=== PATIENT | male | born 1965 | race Caucasian/White ===

== ENCOUNTER 2018-08-09 07:00 | Outpatient (CLI) | payer BC, SELFPAY ==
[2018-08-09 08:22] LABS: ALT 64 U/L (12-78); AST 29 U/L (15-37); Albumin 4.2 g/dL (3.4-5.0); Alkaline Phosphatase 63 U/L (46-116); Anion Gap 13.9 mmol/L (3-11); BUN 11 mg/dL (7-18); Bilirubin, Total 0.6 mg/dL (0.2-1.0); CO2 25.1 mmol/L (21.0-32.0); CREATININE 1.23 mg/dL (0.70-1.30); Chloride 100 mmol/L (98-107); Cholesterol 167 mg/dL (50-200); Glucose 115 mg/dL (70-100); HDL Cholesterol 32 mg/dL (40-60); LDL CHOLESTEROL 108 mg/dL (<100); Potassium 4.1 mmol/L (3.5-5.1); Sodium 139 mmol/L (136-145); Total Protein 7.4 g/dL (6.4-8.2); Triglyceride 167 mg/dL (30-150)
== END 2018-08-09 07:20 ==
PROVIDERS: PCP Family Medicine; Visit Provider Family Medicine
DX: E78.5 Hyperlipidemia, unspecified (principal)
CPT/HCPCS: 36415; 80053; 80061; 83721

== ENCOUNTER 2020-11-14 02:54 | Outpatient (CLI) | payer BC, SELFPAY ==
[2020-11-14 09:12] LABS: ALT 39 U/L (16-63); AST 27 U/L (15-37); Albumin 4.3 g/dL (3.4-5.0); Alkaline Phosphatase 54 U/L (46-116); Anion Gap 11.6 mmol/L (3-11); BUN 23 mg/dL (7-18); Bilirubin, Total 0.4 mg/dL (0.2-1.0); CO2 26.4 mmol/L (21.0-32.0); CREATININE 1.3 mg/dL (0.70-1.30); Calcium 9.4 mg/dL (8.5-10.1); Calculated LDL 130 mg/dL (<100); Chloride 100 mmol/L (98-107); Cholesterol 220 mg/dL (<200); Glucose 106 mg/dL (74-106); HDL Cholesterol 41 mg/dL (40-60); Potassium 4.2 mmol/L (3.5-5.1); Sodium 138 mmol/L (136-145); Total Protein 7.5 g/dL (6.4-8.2); Triglyceride 249 mg/dL (<150)
== END 2020-11-14 02:55 | disposition home or self-care (01) ==
PROVIDERS: PCP Family Medicine; Visit Provider Family Medicine
DX: I10 Essential (primary) hypertension (principal); E78.5 Hyperlipidemia, unspecified
CPT/HCPCS: 36415; 80053; 80061

== ENCOUNTER 2021-11-04 03:57 | Outpatient (CLI) | payer BC, SELFPAY ==
[2021-11-04 12:26] LABS: ALT 31 U/L (16-63); AST 27 U/L (15-37); Albumin 4.3 g/dL (3.4-5.0); Alkaline Phosphatase 50 U/L (46-116); Anion Gap 11.4 mmol/L (3-11); BUN 21 mg/dL (7-18); Bilirubin, Total 0.8 mg/dL (0.2-1.0); CO2 23.6 mmol/L (21.0-32.0); CREATININE 1.2 mg/dL (0.70-1.30); Calcium 8.6 mg/dL (8.5-10.1); Chloride 97 mmol/L (98-107); Glucose 84 mg/dL (74-106); Potassium 3.5 mmol/L (3.5-5.1); Sodium 132 mmol/L (136-145); Total Protein 7.4 g/dL (6.4-8.2); Uric Acid 9.3 mg/dL (3.5-7.2)
[2021-11-04 14:16] LABS: Calculated LDL 135 mg/dL (<100); Cholesterol 214 mg/dL (<200); HDL Cholesterol 44 mg/dL (40-60); Triglyceride 179 mg/dL (<150)
== END 2021-11-04 03:58 | disposition home or self-care (01) ==
LOC: LBO 03:57
PROVIDERS: PCP Family Medicine; Visit Provider Family Medicine
DX: E78.5 Hyperlipidemia, unspecified (principal); M10.9 Gout, unspecified
CPT/HCPCS: 36415; 80053; 80061; 84550

== ENCOUNTER 2023-02-01 10:22 | Emergency (ER) | payer BC, SELFPAY ==
[2023-02-01 10:25] VITALS: BP 104/70; PULSE 89; RESP 16; TEMP 36.7; O2SAT 98
--- NOTE | 2023-02-01 10:30 | DI.US_ITS ---
Exam(s) US SOFT TISSUE EXTREMITY EXAM: US SOFT TISSUE EXTREMITY CLINICAL HISTORY: eval foreign body left hand near base of thumb. TECHNIQUE: Ultrasound was performed using standard protocol. COMPARISON: None FINDINGS: Dedicated ultrasound of the area of clinical concern on the dorso lateral aspect of the hand pharynx. There concern there is an abnormal hypoechoic vascular area which is possibly a tract and overlies a deeper small area of fluid. Findings are probably consistent with probable abscess. There is no obv ious visible foreign body. IMPRESSION: Findings consistent with infectious process this level/developing abscess. DATA REPOSITORY:
--- NOTE | 2023-02-01 10:48 | W.ED.GENAD ---
Discharge Plan Disposition Patient Disposition: Home Discharge Details Chief Complaint: RashLesion Clinical Impression: Foreign body (FB) in soft tissue Primary Care Provider: Kunal Schneider ED Provider: Susie Westbrook Home Meds and New Rx's Prescriptions: No Action Dupixent Syringe 300 mg/2 mL syringe 300 mg SC Q2W Qty: 4 0RF ProAir RespiClick 90 mcg/actuation aerosol powdr breath activated 2 inh inhalation Q6H PRN (Reason: shortness of breath or wheezing) Qty: 1 6RF amlodipine 10 mg tablet 10 mg PO DAILY Qty: 90 3RF Rx Instructions: to lower BP under 140/85 oxycodone-acetaminophen 5-325 mg tablet 1 tab PO BID MDD 10 mg oxycodone PRN (Reason: pain) Qty: 56 0RF Patient Comments: duplicate order 02/01/23 CT oxycodone-acetaminophen [Percocet] 5-325 mg tablet 1 tab PO BID MDD 10 mg oxycodone PRN (Reason: pain) Qty: 56 0RF oxycodone-acetaminophen [Percocet] 5-325 mg tablet 1 tab PO BID MDD 10 mg PRN (Reason: pain) Qty: 56 0RF Patient Comments: duplicate order 02/01/23 CT hydrochlorothiazide 25 mg tablet 25 mg PO DAILY 90 Days Qty: 90 3RF doxycycline hyclate 100 mg tablet 300 mg PO ONCE Qty: 3 0RF Patient Comments: RX complete 02/01/23 CT lisinopril 20 mg tablet 20 mg PO DAILY Qty: 90 3RF lidocaine [Lidoderm] 5 % adhesive patch,medicated 1 patch Topical DAILY PRN (Reason: back pain) Qty: 30 6RF Rx Instructions: for back pain Discharge Instructions Instructions: Abscess (ED) Additional Instructions: Keep the area clean and dry. Fluid may drain from it for the next several days. Call your primary care doctor today to schedule an appointment to follow up on your visit here. Return to the emergency department for new or worsening symptoms including fever, pain or redness in your hand, or if you have any other concerns. Referrals: Kunal Schneider DO [Primary Care Provider] - Medical Decision Making 57yo male presenting with concern for retained foreign body in left hand. Was breaking branches one week ago; got a cut on his hand, since then has had swelling and purulent drainage from the area. Vital signs reassuring, on exam he has a raised nontender area 0.5cm in diamter at the base of his left thumb. No signs of surrounding infection. US soft tissue independently reviewed, no clear foreign body, concern for possible abscess, agree with radiology read below. Lesion incised and tiny (2-3mm) rectangular foreign body consistent with wood removed, serosanginous fluid expressed. Area explored and no further foreign bodies identified. Not diabetic, no risk factors for significant infection, would not do course of antibiotics. Reviewed s/s of infection with patient. Discharged home; discharge instructions including return precautions were reviewed with patient who verablized understanding. Alll questions were answered and they are in full agreement with the plan. Imaging Data Radiologic Study: Imaging: Ultrasound Radiologist's impression: IMPRESSION: Findings consistent with infectious process this level/developing abscess.? HPI General Mode of arrival: ambulatory. Date/Time Provider Initiated Documentation: 02/01/23 10:29. Limitations to Documentation: no limitations. Information obtained by: patient. HPI Narrative: 57yo male presenting with concern for retained foreign body in left hand. Was breaking branches one week ago; got a cut on his hand. Since then the area has swollen and he has had some purulent drainage. No significant pain. There is a lump. He is concerned that there may be some wood stuck in there. No significant pain in his hand, no numbness, tingling, or weakness. He is otherwise in his usual state of health; no fevers, chills, rash, nausea, vomiting, malaise, or other concerns. Related Data Home Medications Medication Instructions Recorded Confirmed dupilumab 300 mg/2 mL subcutaneous 300 mg (2 mL) subcut Q2W #4 mL 12/28/19 02/01/23 syringe (Dupixent) lisinopril 20 mg tablet 20 mg PO DAILY #90 tabs 01/11/22 02/01/23 lidocaine 5 % topical patch 1 patch topical DAILY PRN back 04/13/22 02/01/23 (Lidoderm) pain #30 ea albuterol sulfate 90 mcg/actuation 2 inh inhalation Q6H PRN shortness 01/06/23 02/01/23 breath activated powder inhaler of breath or wheezing #1 ea (ProAir RespiClick) amlodipine 10 mg tablet 10 mg PO DAILY #90 tab-caps 01/06/23 02/01/23 hydrochlorothiazide 25 mg tablet 25 mg PO DAILY 90 days #90 tab-caps 01/06/23 02/01/23 oxycodone-acetaminophen 5 mg-325 1 tab PO BID PRN pain #56 tabs 01/06/23 01/21/23 mg tablet oxycodone-acetaminophen 5 mg-325 1 tab PO BID PRN pain #56 tabs 01/06/23 01/21/23 mg tablet (Percocet) oxycodone-acetaminophen 5 mg-325 1 tab PO BID PRN pain #56 tabs 01/06/23 02/01/23 mg tablet (Percocet) doxycycline hyclate 100 mg tablet 300 mg PO ONCE #3 tabs 01/21/23 01/21/23 Previous Rx's Medication Instructions Recorded dupilumab 300 mg/2 mL subcutaneous 300 mg (2 mL) subcut Q2W #4 mL 12/28/19 syringe (Zaiseoul) lisinopril 20 mg tablet 20 mg PO DAILY #90 tabs 01/11/22 lidocaine 5 % topical patch 1 patch topical DAILY PRN back 04/13/22 (Lidoderm) pain #30 ea albuterol sulfate 90 mcg/actuation 2 inh inhalation Q6H PRN shortness 01/06/23 breath activated powder inhaler of breath or wheezing #1 ea (ProAir RespiClick) amlodipine 10 mg tablet 10 mg PO DAILY #90 tab-caps 01/06/23 hydrochlorothiazide 25 mg tablet 25 mg PO DAILY 90 days #90 tab-caps 01/06/23 oxycodone-acetaminophen 5 mg-325 1 tab PO BID PRN pain #56 tabs 01/06/23 mg tablet oxycodone-acetaminophen 5 mg-325 1 tab PO BID PRN pain #56 tabs 01/06/23 mg tablet (Percocet) oxycodone-acetaminophen 5 mg-325 1 tab PO BID PRN pain #56 tabs 01/06/23 mg tablet (Percocet) doxycycline hyclate 100 mg tablet 300 mg PO ONCE #3 tabs 01/21/23 Allergies Allergy/AdvReac Type Severity Reaction Status Date / Time erythromycin base Allergy Unknown rash Verified 02/01/23 10:29 [Erythromycin Base] montelukast sodium Allergy Unknown Hives Verified 02/01/23 10:29 [From Singulair] Penicillins Allergy Unknown as a baby Verified 02/01/23 10:29 NSAIDS (Non-Steroidal AdvReac Severe Diarrhea/co Verified 02/01/23 10:29 Anti-Inflamma litis atorvastatin AdvReac Mild Muscle Verified 02/01/23 10:29 cramping clindamycin AdvReac Other (See Verified 02/01/23 10:29 Comment) General Stated Complaint: RashLesion ALICE: 4 Review of Systems Narrative: see HPI PFSH All Active Problems (Updated 02/01/23 @ 12:25 by Susie Westbrook MD) Foreign body (FB) in soft tissue (Acute) Tinea corporis (Acute) Seborrheic keratoses (Acute) Plantar fasciitis (Acute) Allergic rhinitis (Acute) 09/25/19 E[facility] [place] Bilateral high frequency hearing loss (Acute) L>R Tinnitus (Acute) Decreased hearing of left ear (Acute) Nasal polyposis (Acute) 05/29/19 ENT. Discussing sinus surgery Mild intermittent asthma (Acute) Chronic sinusitis, unspecified (Acute) 03/14/19: Gerald Watson MD placed on prednisone taper 03/14/19. 40mg daily for 6 days, tapering off over the next 10 days, he will call with any interval problems. 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 Left sided L5 Pars defect. Foraminal narrowing left L5-S1 moderate; unlikely surgical solution [place] 03/2016; R kne Lumbago (Chronic) current exacerbation 05/24/2014 Irritable colon (Chronic 12/05/12) gluten sensitive, pos FH for sprue (brothers 2, and grandfather) Hypertension (Chronic 06/20/14) Hyperlipidemia (Chronic 12/05/12) Risk 5% 03/2014, LDL 134, low HDL 38; with high BP, incr risk to 6.1% Surgical History Radiofrequency Ablation L3,L4,L5 (05/13/15) Dr. Jorge Cota, denervation of bilateral L4-5 and L5-S1 facet joints, followed lumbar epidural steroid inj 03/2013, 06/2014, 07/2014; and Medial branch block L3, L4, L5 03/2015 Repair of inguinal hernia Tonsillectomy and adenoidectomy Family History Mother No problems noted. Father Heart disease CABG Brother No problems noted. Brother No problems noted. Social History (Updated 11/20/20 @ 08:46 by Mary Valladares LPN) Smoking/Tobacco Use Status: Never Smoking risk assessment performed?: Yes Alcohol Intake: current Alcohol Intake frequency: a few times a month Drug use: Never Substance use type: does not use Adopted: No Caregiver/Support person: No Foster care: No Household members: spouse Housing: house Number of Children: 2 number of grandchildren: 1 Communication Needs: None Do you need help understanding health information?: Rarely current occupation: [employer] Pets and animals: Yes Pets and animals: dog(s) What is your relationship status?: How often do you talk on the phone with friends or family?: three or more times per week Panel score (0-1 are the most socially isolated patients): 2 What type of physical activity do you participate in: walking and regular exercise Frequency: daily Seatbelt use: always Drive intox or ride w/intox driver's education instructor: No Working smoke detector in home: Yes Carbon monox detector in home: Yes Do you feel safe in your relationship?: Yes Exam Narrative Exam Narrative: General: Alert, well appearing, well nourished, in no acute distress. Head: Normocephalic, atraumatic Neck: Trachea midline, Neck supple. Cardiac: No cyanosis Resp: No respiratory distress. Speaking in full sentences. Abd: Non-distended Extremities: No deformities. No peripheral edema. Skin: 0.5cm raised lesion to left hand at base of thumb. No drainage. No surounding erythema. Nontender. Distal sensation, motion, and capillary refill intact. Neurologic: GCS 15. Moves all extremities freely against gravity Course Vital Signs Vital signs: Vital Signs Temperature 36.7 C 02/01/23 10:25 Pulse 89 02/01/23 10:25 Respiratory Rate 16 02/01/23 10:25 Blood Pressure 104/70 02/01/23 10:25 Pulse Oximetry 98 02/01/23 10:25 Temperature 36.7 C 02/01/23 10:25 Temperature Source Temporal Artery Scan 02/01/23 10:25 Pulse 89 02/01/23 10:25 Respiratory Rate 16 02/01/23 10:25 Respiratory Effort Normal 02/01/23 10:27 Blood Pressure 104/70 02/01/23 10:25 Blood Pressure Position Sitting 02/01/23 10:25 Pulse Oximetry 98 02/01/23 10:25 Oxygen Delivery Method Room Air 02/01/23 10:25 Oxygen Flow Rate 0 02/01/23 10:25 Pain Level 0 02/01/23 10:25 Procedures Abscess I/D Site: Hand Side (if applicable): Left Sedation/analgesia: None Technique: Incised with #11 Blade Amount of fluid expressed (mL): 1 Irrigation: No Packing used?: None PAWSS Have you Been Recently Intoxicated or Drunk Within the Last 30 days?: No Have you Ever Experienced Previous Episodes of Alcohol Withdrawal?: No Have you ever Experienced Withdrawal Seizures?: No Have you ever Experienced Delirium Tremens(DT)s?: No Have you ever undergone Alcohol Rehabilitation Treatment (i.e, inpt ot outpatient treatment programs)?: No Have you ever Experienced Blackouts?: No Have you ever Combined Alcohol with other Downers within the last 90 days?: No Have you ever Combined Alcohol with any other Substance of Abuse during the last 90 days?: No Result: 0
== END 2023-02-01 12:40 | disposition home or self-care (01) ==
PROVIDERS: Emergency Provider Student in an Organized Health Care Education/Training Program; PCP Family Medicine
DX: M79.5 Residual foreign body in soft tissue (principal)
CPT/HCPCS: 10060; 76881; 99284; 99283

== ENCOUNTER 2024-10-05 07:45 | Outpatient (CLI) | payer BC, SELFPAY ==
[2024-10-05 07:42] LABS: Anion Gap 9.3 mmol/L (3-11); BUN 22 mg/dL (7-18); CO2 25.7 mmol/L (21.0-32.0); CREATININE 1.2 mg/dL (0.70-1.30); Chloride 99 mmol/L (98-107); Estimated GFR 69.66 (mL/min/1.73m2); Glucose 103 mg/dL (74-106); Potassium 4.1 mmol/L (3.5-5.1); Sodium 134 mmol/L (136-145)
== END 2024-10-05 07:46 | disposition home or self-care (01) ==
LOC: LBO 07:45
PROVIDERS: PCP Family Medicine; Visit Provider Family Medicine
DX: I10 Essential (primary) hypertension (principal)
CPT/HCPCS: 36415; 80048

== ENCOUNTER 2024-11-29 14:03 | Emergency (ER) | payer BC, SELFPAY ==
[2024-11-29 14:12] VITALS: BP 136/67; PULSE 83; RESP 19; TEMP 36.7; O2SAT 95
--- NOTE | 2024-11-29 14:15 | DI.RAD_ITS ---
Exam(s) XR FOOT LT COMPLETE EXAM: XR FOOT LT COMPLETE CLINICAL HISTORY: pain at 2nd MTP joint. TECHNIQUE: 2D digital imaging was performed. Three views. COMPARISON: No exams were available for comparison FINDINGS: BONES: There is a faint lucency through the lateral corner of the base of the proximal phalanx of the 2nd toe which could represent a nondisplaced fracture. It is seen on the oblique view. No bony destructive lesion is seen. JOINTS: No dislocation present. Mild degenerative changes at the 1st MTP joint. Mild hallux valgus. SOFT TISSUE: Mild vascular calcifications. IMPRESSION: Question nondisplaced fracture at base proximal phalanx of the 2nd toe. DATA REPOSITORY: RADIATION DOSE DELIVERED:
--- NOTE | 2024-11-29 14:57 | W.ED.GENAD ---
Discharge Plan Disposition Patient Disposition: Home Condition: Good Discharge Details Clinical Impression: Closed fracture of phalanx of left second toe Primary Care Provider: Kunal Schneider ED Provider: Matthew Galvan Home Meds and New Rx's Prescriptions: No Action Dupixent Syringe 300 mg/2 mL syringe 300 mg SC Q2W Qty: 4 0RF lidocaine [Lidoderm] 5 % adhesive patch,medicated 1 patch Topical DAILY PRN (Reason: back pain) Qty: 30 6RF Rx Instructions: for back pain oxycodone-acetaminophen 5-325 mg tablet 1 tab PO BID MDD 10 mg oxycodone PRN (Reason: pain) Qty: 56 0RF Patient Comments: duplicate order 02/01/23 CT oxycodone-acetaminophen [Percocet] 5-325 mg tablet 1 tab PO BID MDD 10 mg PRN (Reason: pain) Qty: 56 0RF Patient Comments: duplicate order 02/01/23 CT oxycodone-acetaminophen [Percocet] 5-325 mg tablet 1 tab PO BID MDD 10 mg oxycodone PRN (Reason: pain) Qty: 56 0RF amlodipine 10 mg tablet 10 mg PO DAILY Qty: 90 3RF Rx Instructions: to lower BP under 140/85 lisinopril 20 mg tablet 20 mg PO DAILY Qty: 90 3RF prednisone 20 mg tablet 40 mg PO DAILY Qty: 10 0RF Discharge Instructions Instructions: Toe fracture Additional Instructions: At this time the x-ray shows evidence of a fracture in your toe. It would be best to stay off of it is much as possible. If you need to be weightbearing secondary to your work, please use the walking boot for the next 1 to 3 weeks. Please use Tylenol and Motrin as needed for pain control. Please rest as often as you can for your foot and avoid any trauma or hard foot drops during this healing process. If you notice any worsening of your symptoms, or any new symptoms such as vomiting, diarrhea, fever, chills, shortness of breath, chest pain, numbness, weakness, or fainting , please return immediately to the emergency department for reevaluation. Please follow up with your primary care provider as soon as possible for reassessment and reevaluation. As always, it was a pleasure participating in your medical care today. Referrals: Kunal Schneider DO [Primary Care Provider, Medicine] HPI General Date/Time Provider Initiated Documentation: 11/29/24 14:16. HPI Narrative: This is a 59-year-old male with past medical history of gout, Raynaud's, gluten sensitivity, hypertension, high cholesterol, who presents today for evaluation of left second MTP joint pain. Patient states that about a week ago he developed suspecting gout in both feet, no trauma at the time. No fever or chills. He was started on prednisone, and he had notable improvement of the right foot, however his left foot stayed persistently tender. He contacted his PCP, and was started on prednisone again and is now taken 2 days of prednisone for the second dosage. Has been applying Voltaren gel without any improvement. He denies any other trauma. No other complaints at this time. Pain is made worse with weightbearing. He states that his symptoms feel similar to previous gout. Related Data Home Medications ?Medication ?Instructions ?Recorded ?Confirmed dupilumab 300 mg/2 mL subcutaneous 300 mg (2 mL) subcut Q2W #4 mL 12/28/19 11/29/24 syringe (Dupixent) amlodipine 10 mg tablet 10 mg PO DAILY #90 tab-caps 01/12/24 11/29/24 lisinopril 20 mg tablet 20 mg PO DAILY #90 tabs 03/01/24 11/29/24 lidocaine 5 % topical patch 1 patch topical DAILY PRN back 04/24/24 11/29/24 (Lidoderm) pain #30 ea oxycodone-acetaminophen 5 mg-325 1 tab PO BID PRN pain #56 tabs 10/08/24 11/29/24 mg tablet oxycodone-acetaminophen 5 mg-325 1 tab PO BID PRN pain #56 tabs 10/08/24 11/29/24 mg tablet (Percocet) oxycodone-acetaminophen 5 mg-325 1 tab PO BID PRN pain #56 tabs 10/08/24 11/29/24 mg tablet (Percocet) prednisone 20 mg tablet 40 mg (2 x 20 mg) PO DAILY #10 tabs 11/28/24 11/29/24 Previous Rx's ?Medication ?Instructions ?Recorded dupilumab 300 mg/2 mL subcutaneous 300 mg (2 mL) subcut Q2W #4 mL 12/28/19 syringe (Dupixent) amlodipine 10 mg tablet 10 mg PO DAILY #90 tab-caps 01/12/24 lisinopril 20 mg tablet 20 mg PO DAILY #90 tabs 03/01/24 lidocaine 5 % topical patch 1 patch topical DAILY PRN back 04/24/24 (Lidoderm) pain #30 ea oxycodone-acetaminophen 5 mg-325 1 tab PO BID PRN pain #56 tabs 05/12/25 mg tablet oxycodone-acetaminophen 5 mg-325 1 tab PO BID PRN pain #56 tabs 05/12/25 mg tablet (Percocet) oxycodone-acetaminophen 5 mg-325 1 tab PO BID PRN pain #56 tabs 05//25 mg tablet (Percocet) prednisone 20 mg tablet 40 mg (2 x 20 mg) PO DAILY #10 tabs 11/28/24 Allergies Allergy/AdvReac Type Severity Reaction Status Date / Time erythromycin base Allergy Unknown rash Verified 11/29/24 14:11 (Erythromycin Base) montelukast sodium (From Allergy Unknown Hives Verified 11/29/24 14:11 Singulair) Penicillins Allergy Unknown as a baby Verified 11/29/24 14:11 NSAIDS (Non-Steroidal AdvReac Severe Diarrhea/co Verified 11/29/24 14:11 Anti-Inflamma litis atorvastatin AdvReac Mild Muscle Verified 11/29/24 14:11 cramping clindamycin AdvReac Other (See Verified 11/29/24 14:11 Comment) General Stated Complaint: Orthopedic ALICE: 4 Exam Narrative Exam Narrative: 1.Const: Well-nourished, Well-developed, appearing stated age 2.Eyes: PERRL, no conjunctival injection, and symmetrical lids. 3.ENT: Atraumatic external nose and ears. Moist MM. Neck: Symmetric, trachea midline, No thyromegaly. 4.CVS: +S1/S2, Peripheral pulses 2+ and equal in all extremities. Brisk capillary refill in all extremities. 5.RESP: Unlabored respiratory effort. Clear to auscultation bilaterally. No wheezes rales or rhonchi 6.GI: Soft, Nontender/Nondistended, No hepatosplenomegaly. No guarding or rebound. 7.MSK: Normocephalic/Atraumatic, Extremities w/o deformity or ttp No cyanosis or clubbing, Normal movement of all extremities. Right foot is unremarkable on exam, left foot demonstrates focal tenderness on the plantar aspect of the second MTP joint for the foot. No significant redness, erythema, swelling, crepitus, or signs of trauma. No atypical warmth. 8.Skin: Warm, Dry. No rashes or lesions. 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 Sensation grossly intact, no focal neurologic deficits. 10.Psych: (AAO) x3. Appropriate mood and affect Course Vital Signs Vital signs: Vital Signs Temperature 36.7 C 11/29/24 14:12 Pulse 83 11/29/24 14:12 Respiratory Rate 19 11/29/24 14:12 Blood Pressure 136/67 11/29/24 14:12 Pulse Oximetry 95 11/29/24 14:12 Temperature 36.7 C 11/29/24 14:12 Temperature Source Oral 11/29/24 14:12 Pulse 83 11/29/24 14:12 Respiratory Rate 19 11/29/24 14:12 Blood Pressure 136/67 11/29/24 14:12 Blood Pressure Position Sitting 11/29/24 14:12 Pulse Oximetry 95 11/29/24 14:12 Oxygen Delivery Method Room Air 11/29/24 14:12 Oxygen Flow Rate 0 11/29/24 14:12 Pain Level 8 11/29/24 14:12 Medical Decision Making This is a 59-year-old male with past medical history of gout, Raynaud's, gluten sensitivity, hypertension, high cholesterol, who presents today for evaluation of left second MTP joint pain. Patient states that about a week ago he developed suspecting gout in both feet, no trauma at the time. No fever or chills. He was started on prednisone, and he had notable improvement of the right foot, however his left foot stayed persistently tender. He contacted his PCP, and was started on prednisone again and is now taken 2 days of prednisone for the second dosage. Has been applying Voltaren gel without any improvement. He denies any other trauma. No other complaints at this time. Pain is made worse with weightbearing. He states that his symptoms feel similar to previous gout. Exam demonstrates A Right foot is unremarkable on exam, left foot demonstrates focal tenderness on the plantar aspect of the second MTP joint for the foot. No significant redness, erythema, swelling, crepitus, or signs of trauma. No atypical warmth. Gout is on the differential, metatarsalgia, potential gout versus pseudogout, arthritis. Will get an x-ray to rule out osseous injury, I do feel that the patient is managing the foot appropriately otherwise with steroids, and Voltaren gel. The patient does not do well with any oral NSAIDs as it causes significant upset stomach colitis and bleeding. I also feel that antigout agents would also be potentially concerning for his stomach sensitivities. Will get an x-ray to rule out acute process or fracture, will monitor closely and reassess. 3:29 PM X-ray results have returned, there is evidence of a nondisplaced fracture at the base of the proximal phalanx of the second toe. This does appear to be the point of tenderness and concern for the patient. Symptoms appear consistent with mild fracture. Patient is uncertain as to what trauma could have brought this about. Will give walking boot. Patient has declined crutches. Recommend weightbearing as tolerated. Discussed red flags which to return. I have extensively reviewed the treatment plan and discharge instructions with the patient. I have addressed all patient concerns at this time. The patient was made aware of what symptoms to monitor for that would warrant a return to the emergency department. Discussed the plan with the patient, they demonstrate verbal understanding and agreement with our assessment and plan at this time. The documentation in this chart was dictated using [employer] dictation software. Please excuse any dictation errors. FINDINGS: BONES: There is a faint lucency through the lateral corner of the base of the proximal phalanx of the 2nd toe which could represent a nondisplaced fracture. It is seen on the oblique view. No bony destructive lesion is seen. JOINTS: No dislocation present. Mild degenerative changes at the 1st MTP joint. Mild hallux valgus. SOFT TISSUE: Mild vascular calcifications. IMPRESSION: Question nondisplaced fracture at base proximal phalanx of the 2nd toe. PFSH All Active Problems (Updated 11/29/24 @ 15:31 by Matthew Galvan DO) Closed fracture of phalanx of left second toe (Acute) Hyperuricemia (Acute) Gout (Chronic) Onychomycosis (Acute) Arthritis of hand, right (Acute) Allergy to environmental factors (Acute) Tinea corporis (Acute) Seborrheic keratoses (Acute) Plantar fasciitis (Acute) Allergic rhinitis (Acute) 09/25/19 E[facility] [place] Bilateral high frequency hearing loss (Acute) L>R Tinnitus (Acute) Decreased hearing of left ear (Acute) Nasal polyposis (Acute) 05/29/19 ENT. Discussing sinus surgery Mild intermittent asthma (Acute) Chronic sinusitis, unspecified (Acute) 03/14/19: Gerald Watson MD placed on prednisone taper 03/14/19. 40mg daily for 6 days, tapering off over the next 10 days, he will call with any interval problems. 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 Left sided L5 Pars defect. Foraminal narrowing left L5-S1 moderate; unlikely surgical solution [place] 03/2016; R kne Lumbago (Chronic) current exacerbation 05/24/2014 Irritable colon (Chronic 12/05/12) gluten sensitive, pos FH for sprue (brothers 2, and grandfather) Hypertension (Chronic 06/20/14) Hyperlipidemia (Chronic 12/05/12) Risk 5% 03/2014, LDL 134, low HDL 38; with high BP, incr risk to 6.1% Medical History History of chronic sinusitis Surgical History Tonsillectomy and adenoidectomy Radiofrequency Ablation L3,L4,L5 (05/13/15) Dr. Jorge Cota, denervation of bilateral L4-5 and L5-S1 facet joints, followed lumbar epidural steroid inj 03/2013, 06/2014, 07/2014; and Medial branch block L3, L4, L5 03/2015 Repair of inguinal hernia Family History Mother No problems noted. Father Heart disease CABG Brother No problems noted. Brother No problems noted. Social History (Updated 10/08/24 @ 09:04 by Mary Valladares LPN) Smoking/Tobacco Use Status: Never Smoking risk assessment performed?: Yes Alcohol Intake: current Alcohol Intake frequency: holidays/special occasions only Drug use: Never Substance use type: does not use Adopted: No Caregiver/Support person: No Foster care: No Household members: spouse Housing: house Number of Children: 2 number of grandchildren: 1 Communication Needs: None Do you need help understanding health information?: Rarely current occupation: [employer] Pets and animals: Yes Pets and animals: dog(s) What is your relationship status?: How often do you talk on the phone with friends or family?: three or more times per week Panel score (0-1 are the most socially isolated patients): 2 What type of physical activity do you participate in: walking and regular exercise Frequency: daily Seatbelt use: always Drive intox 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
[2024-11-29 15:45] VITALS: BP 139/90; PULSE 68; RESP 18; O2SAT 99
== END 2024-11-29 15:46 | disposition home or self-care (01) ==
PROVIDERS: Emergency Provider Student in an Organized Health Care Education/Training Program; PCP Family Medicine
DX: S92.515A Nondisplaced fracture of proximal phalanx of left lesser toe(s), initial encounter for closed fracture (principal); I10 Essential (primary) hypertension; E78.5 Hyperlipidemia, unspecified; X58.XXXA Exposure to other specified factors, initial encounter
CPT/HCPCS: 99283; 73630